=== PATIENT | female | born 2005 | race Caucasian/White ===

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

== ENCOUNTER 2023-04-21 11:16 | Observation (INO) | payer OTHER ==
[2023-04-21 12:51] LABS: Appearance Clear (Clear); Bacteria None Seen /HPF (None Seen); Bilirubin Negative (Negative); Blood Negative (Negative); Epithelial Cells Rare /HPF (None Seen); Glucose, Urine Negative (Negative); Hyaline Casts NONE SEEN /LPF (0-2); Ketones Trace (Negative); Leukocyte Esterase Negative (Negative); Nitrite Negative (Negative); Protein,Urine Dip Trace (Negative); RBC 0-2 /HPF (0-5); Specific Gravity 1.025 (1.005-1.030); WBC 0-2 /HPF (0-5)
[2023-04-21 13:03] LABS: ADD URINE CULTURE? NO (NO)
[2023-04-21] MEDS ORDERED: Lactated Ringers 1,000 ML IV ONE (13:08)
[2023-04-21] MEDS ORDERED: Lactated Ringers 1,000 ML IV SCH (13:30)
[2023-04-21 15:06] VITALS: BP 119/63; PULSE 79; O2SAT 97
[2023-04-21 17:20] LABS: Amphetamine,Urine NEGATIVE (NEGATIVE); Barbiturate,Urine NEGATIVE (NEGATIVE); Benzodiazepine,Urine NEGATIVE (NEGATIVE); Cocaine,Urine NEGATIVE (NEGATIVE); Methadone,Urine NEGATIVE (NEGATIVE); Opiate,Urine NEGATIVE (NEGATIVE); PCP,Urine NEGATIVE (NEGATIVE); THC,Urine NEGATIVE (NEGATIVE)
== END 2023-04-21 15:56 | disposition home or self-care (01) ==
LOC: MED SURG 11:16 → UNDOADMOB 11:16 → UNDODISOB 15:56
PROVIDERS: ADMIT Obstetrics & Gynecology; ATTEND Obstetrics & Gynecology
DX: Z34.03 Encounter for supervision of normal first pregnancy, third trimester (principal); Z3A.35 35 weeks gestation of pregnancy
CPT/HCPCS: 80307; 81001; G0378; G0379

== ENCOUNTER 2023-05-21 06:42 | Inpatient (IN) | payer OTHER ==
[2023-05-21] MEDS ORDERED: Zofran 4 MG/2 ML VIAL IV PRN (14:53)
[2023-05-21 15:17] LABS: BASOPHIL % 0.2 % (0.0-0.4); Basophil (Absolute #) 0.02 x10^3/uL (0-0.4); Eosinophil % 0.3 % (0.00-5.0); Eosinophil (Absolute #) 0.03 x10^3/uL (0-0.5); Hematocrit 35.6 % (35-47); Hemoglobin 11.5 g/dL (12.0-16.0); IMMATURE GRAN # 0.05 x10^3u/L (0.00-0.03); IMMATURE GRAN % 0.5 % (0.00-0.4); Lymphocytes % 12.5 % (24.0-44.0); Mean Corpuscular Hgb Concent. 32.3 g/dL (32-36); Mean Platelet Volume 10.4 fL (7.5-11.0); Monocyte (Absolute #) 0.71 x10^3/uL (0.0-1.3); Monocytes % 7.4 % (0.0-12.0); Neutrophil % 79.1 % (36.0-66.0); Platelet Count 174 x10^3/uL (150-450); Red Blood Count 3.71 x10^6/uL (4.1-5.4); Red Cell Distribution Width 13.6 % (11.5-14.0); White Blood Count 9.6 x10^3/uL (4.0-10.5)
[2023-05-21] MEDS: CYTOTEC PO SCH ×5 (15:35→23:27)
[2023-05-21 16:03] LABS: Amphetamine,Urine NEGATIVE (NEGATIVE); Barbiturate,Urine NEGATIVE (NEGATIVE); Benzodiazepine,Urine NEGATIVE (NEGATIVE); Cocaine,Urine NEGATIVE (NEGATIVE); Methadone,Urine NEGATIVE (NEGATIVE); Opiate,Urine NEGATIVE (NEGATIVE); PCP,Urine NEGATIVE (NEGATIVE); THC,Urine NEGATIVE (NEGATIVE)
[2023-05-21 16:15] LABS: ABO TYPING A; Antibody Screen NEGATIVE (NEGATIVE); RH TYPING POSITIVE
[2023-05-22] MEDS: CYTOTEC PO SCH ×2 (01:31→03:38)
[2023-05-22] MEDS ORDERED: Ephedrine Sulfate 50 MG/ML IV PRN (04:00)
[2023-05-22] MEDS ORDERED: Nubain 10 MG/ML IV PRN (04:00)
[2023-05-22] MEDS ORDERED: Nubain 10 MG/ML ONE (04:17)
[2023-05-22] MEDS ORDERED: FENTANYL 2 MCG-BUPIV 0.125%-NS 250 ML Epidur 250 ML EPIDURAL SCH (04:30)
[2023-05-22] MEDS ORDERED: Lactated Ringers 1,000 ML IV ONE (04:30)
[2023-05-22] MEDS: Lactated Ringers 1,000 ML IV SCH ×5 (04:35→15:37)
[2023-05-22] MEDS ORDERED: BRETHINE 1 MG/ML SQ PRN (04:42)
[2023-05-22] MEDS ORDERED: PITOCIN 30 UNITS/ LR 500 ML 30 UNITS/500 ML PLAST..BAG IV SCH (05:30)
[2023-05-22] MEDS ORDERED: CORTISONE 1% CREAM TP PRN (11:18)
[2023-05-22] MEDS ORDERED: Mylicon 80MG PO PRN (11:18)
[2023-05-22] MEDS ORDERED: Dulcolax 10 MG SUPP PR PRN (11:18)
[2023-05-22] MEDS ORDERED: NORCO 5/325 MG PO PRN (11:18)
[2023-05-22] MEDS ORDERED: Dermoplast Spray TP PRN (11:18)
[2023-05-22] MEDS ORDERED: Ambien 10 MG PO PRN (11:18)
[2023-05-22] MEDS ORDERED: Anucort-HC SUPPOSITORY PR PRN (11:18)
[2023-05-22] MEDS ORDERED: TYLENOL EXTRA STRENGTH 500 MG PO PRN (11:18)
[2023-05-22] MEDS ORDERED: LANSINOH 40 GM TOP PRN (11:18)
[2023-05-22] MEDS ORDERED: Adacel Vial IM ONE (15:00)
[2023-05-22] MEDS: MOTRIN 400 MG PO PRN (18:45)
[2023-05-22] MEDS: TUCKS TP PRN (21:15)
[2023-05-22] MEDS ORDERED: Docusate Sodium 100 MG PO SCH (22:00)
[2023-05-23 03:28] VITALS: O2SAT 97
[2023-05-23] MEDS: Lactated Ringers 1,000 ML IV SCH (04:32)
[2023-05-23] MEDS: MOTRIN 400 MG PO PRN ×3 (05:06→20:57)
[2023-05-23 05:29] LABS: Absolute Neutrophil Ct (ANC) 12.39 x10^3/uL (1.4-6.9); BASOPHIL % 0.2 % (0.0-0.4); Basophil (Absolute #) 0.03 x10^3/uL (0-0.4); Eosinophil % 0.2 % (0.00-5.0); Eosinophil (Absolute #) 0.03 x10^3/uL (0-0.5); Hematocrit 34.3 % (35-47); IMMATURE GRAN # 0.07 x10^3u/L (0.00-0.03); IMMATURE GRAN % 0.5 % (0.00-0.4); Lymphocyte (Absolute #) 1.74 x10^3/uL (1.0-4.6); Lymphocytes % 11.4 % (24.0-44.0); Mean Cell Volume 96.1 fL (78-100); Mean Corpuscular Hemoglobin 30.8 pg (26-32); Mean Corpuscular Hgb Concent. 32.1 g/dL (32-36); Mean Platelet Volume 10.3 fL (7.5-11.0); Monocyte (Absolute #) 1.03 x10^3/uL (0.0-1.3); Monocytes % 6.7 % (0.0-12.0); Platelet Count 160 x10^3/uL (150-450); Red Blood Count 3.57 x10^6/uL (4.1-5.4); Red Cell Distribution Width 13.5 % (11.5-14.0); White Blood Count 15.3 x10^3/uL (4.0-10.5)
[2023-05-23 11:00] LABS: RPR Non Reactive (Non Reactive)
--- NOTE | 2023-05-23 11:06 | PCM.NOTE ---
Date and Time: 05/23/23 1104 ppd 1 sp pt resting in bed and doing well able to ambulate and tolerate diet vss afebrile abd; soft uterus; firm lochia; mild hgb; 11 a/p sp ppd 1 anticipate discharge tomorrow fu office in 3 wks OBJECTIVE DATA Vital Signs: Vital Signs - 24 hr Temp Pulse Resp BP BP Pulse Ox 05/23/23 08:00 97.3 F 93 H 18 140/75 05/23/23 02:00 98.1 F 87 16 135/73 97 05/22/23 20:00 98.1 F 96 H 16 134/71 96 05/22/23 18:30 80 18 135/67 97 05/22/23 18:15 81 18 143/72 98 05/22/23 17:35 95 H 22 132/60 98 05/22/23 16:45 98 H 24 129/61 95 05/22/23 16:30 125 H 24 132/59 95 05/22/23 16:15 24 130/90 05/22/23 16:00 20 133/81 05/22/23 15:45 20 135/92 05/22/23 15:30 20 134/67 05/22/23 15:15 20 134/67 05/22/23 15:00 20 135/92 05/22/23 14:45 100 H 20 114/64 05/22/23 14:30 83 20 118/61 05/22/23 14:15 83 18 118/54 05/22/23 14:00 83 18 122/59 05/22/23 13:45 83 18 115/51 05/22/23 13:30 83 18 132/62 05/22/23 13:15 80 18 114/56 05/22/23 13:00 80 18 114/56 05/22/23 12:45 80 18 114/56 05/22/23 12:30 82 18 123/63 05/22/23 12:15 82 18 128/68 05/22/23 12:00 86 18 128/74 05/22/23 11:45 82 18 128/74 05/22/23 11:30 82 18 110/58 05/22/23 11:15 81 16 98/53 Pain Assessment - Last Documented Pain Intensity [Abdomen] 0 Pain Intensity 2 Pain Scale Used 0-10 Pain Scale Intake and Output: Intake & Output 05/20/23 05/21/23 05/22/23 05/23/23 11:59 11:59 11:59 11:59 Intake Total 3413 6741 Output Total 200 400 Balance 3213 6334 Weight 99.79 kg Lab Results: Lab Results-Last 24 Hours 05/21/23 05/23/23 Range/Units 15:06 05:22 WBC 15.3 H (4.0-10.5) x10^3/uL RBC 3.57 L (4.1-5.4) x10^6/uL Hgb 11.0 L (12.0-16.0) g/dL Hct 34.3 L (35-47) % MCV 96.1 (78-100) fL MCH 30.8 (26-32) pg MCHC 32.1 (32-36) g/dL RDW 13.5 (11.5-14.0) % Plt Count 160 (150-450) x10^3/uL MPV 10.3 (7.5-11.0) fL Gran % 81.0 H (36.0-66.0) % Immature Gran % (Auto) 0.5 H (0.00-0.4) % Nucleat RBC Rel Count 0.0 (0.00-0.1) % Eos # (Auto) 0.03 (0-0.5) x10^3/uL Immature Gran # (Auto) 0.07 H (0.00-0.03) x10^3u/L Absolute Lymphs (auto) 1.74 (1.0-4.6) x10^3/uL Absolute Monos (auto) 1.03 (0.0-1.3) x10^3/uL Absolute Nucleated RBC 0.00 (0.00-0.01) x10^3u/L Lymphocytes % 11.4 L (24.0-44.0) % Monocytes % 6.7 (0.0-12.0) % Eosinophils % 0.2 (0.00-5.0) % Basophils % 0.2 (0.0-0.4) % Absolute Granulocytes 12.39 H (1.4-6.9) x10^3/uL Basophils # 0.03 (0-0.4) x10^3/uL RPR Non Reactive (Non Reactive) Multi-Disciplinary Progress Notes: Multi-Disciplinary Progress Notes 05/22/23 17:50 Respiratory Note by Priya Esquivel [id number] PER PROTOCOL. BABY DELIVERED AT 1658, MUSCLE TONE AND RESPIRATORY EFFORT POOR. BABY BROUGHT TO WARMER. STIMULATED AND DRIED OFF MUSCLE TONE COLOR AND RESPIRATORY EFFORT STILL POOR, PPV STARTED FOR APPROX 6MIN . PERIODIC BREAKS TAKEN TO ASSES HEART RATE COLOR AND RESPIRATORY EFFORT. COLOR AND TONE GRADUALLY IMPROVED . RESPIRATORY EFFORT DID BECOME EFFECTIVE AND PPV WAS NO LONGER INDICATED, HR 170 SPO2 RANGING FROM 89-MID 90;S THEN INCREASED TO 98%. Initialized on 05/22/23 17:50 - END OF NOTE Assessment/Plan (1) Vaginal delivery Current Visit: Yes Status: Acute Code(s): O80 - ENCOUNTER FOR FULL-TERM UNCOMPLICATED DELIVERY
--- NOTE | 2023-05-23 11:08 | PCM.DS ---
Discharge Summary Date of Admission: 05/22/23 06:42 Admitting Physician: SOPHY BARRERA DO Consults: Consults on Case 05/22/23 04:00 Notify Anesthesia Provider PRN 05/22/23 11:19 Notify Physician ROUTINE Primary Care Provider: YAW BROWN Allergies Allergies No Known Drug Allergies Allergy (Verified 05/21/23 16:32) Hospital Summary - Hospital Course Hospital Course: pt admitted on may 21 for oral cytotec induction at 39 wks gestation and subsequently had pitocin augmentation on may 22 and delivered live baby boy without complication via on . during period did very well able to ambulate and tolerate diet. stable hgb at 11. pt at this time stable for discharge on . all questions answered to her satisfaction and was advised to fu in office in 3 wks for care. - Vitals & Intake/Output Vital Signs: Vital Signs Temperature 97.3 F 05/23/23 08:00 Pulse Rate 93 H 05/23/23 08:00 Respiratory Rate 18 05/23/23 08:00 Blood Pressure 140/75 05/23/23 08:00 O2 Sat by Pulse Oximetry 97 05/23/23 02:00 Intake & Output: Intake & Output 05/20/23 05/21/23 05/22/23 05/23/23 11:59 11:59 11:59 11:59 Intake Total 3413 6741 Output Total 200 400 Balance 3213 6341 Weight 99.79 kg - Lab Result Diagrams: 05/23/23 05:22 Lab Results-Last 24 Hrs: Lab Results-Last 24 Hours 05/21/23 05/23/23 Range/Units 15:06 05:22 WBC 15.3 H (4.0-10.5) x10^3/uL RBC 3.57 L (4.1-5.4) x10^6/uL Hgb 11.0 L (12.0-16.0) g/dL Hct 34.3 L (35-47) % MCV 96.1 (78-100) fL MCH 30.8 (26-32) pg MCHC 32.1 (32-36) g/dL RDW 13.5 (11.5-14.0) % Plt Count 160 (150-450) x10^3/uL MPV 10.3 (7.5-11.0) fL Gran % 81.0 H (36.0-66.0) % Immature Gran % (Auto) 0.5 H (0.00-0.4) % Nucleat RBC Rel Count 0.0 (0.00-0.1) % Eos # (Auto) 0.03 (0-0.5) x10^3/uL Immature Gran # (Auto) 0.07 H (0.00-0.03) x10^3u/L Absolute Lymphs (auto) 1.74 (1.0-4.6) x10^3/uL Absolute Monos (auto) 1.03 (0.0-1.3) x10^3/uL Absolute Nucleated RBC 0.00 (0.00-0.01) x10^3u/L Lymphocytes % 11.4 L (24.0-44.0) % Monocytes % 6.7 (0.0-12.0) % Eosinophils % 0.2 (0.00-5.0) % Basophils % 0.2 (0.0-0.4) % Absolute Granulocytes 12.39 H (1.4-6.9) x10^3/uL Basophils # 0.03 (0-0.4) x10^3/uL RPR Non Reactive (Non Reactive) - Procedures and Test Procedures and Tests throughout Hospitalization: Therapy Orders & Screens 05/22/23 17:49 Standby ROUTINE Comment: Diagnosis: IUP Final Diagnosis/Problem List - Final Discharge Diagnosis/Problem (1) Vaginal delivery Current Visit: Yes Status: Acute Code(s): O80 - ENCOUNTER FOR FULL-TERM UN COMPLICATED DELIVERY - Discharge Disposition: Home, Self-Care Condition: Stable Prescriptions: No Action Vit 14/Iron Fum/Folic [Completenate Tablet Chew] 1 each PO DAILY Omeprazole Magnesium [Prilosec Otc] 20 mg PO HS Follow up with: YAW BROWN NP [Primary Care Provider] - SOPHY BARRERA DO [ACTIVE STAFF] - 3 weeks (should call office for any issues that may arise)
[2023-05-23] MEDS: FERREX 150 PO SCH (11:44)
[2023-05-23] MEDS: Docusate Sodium 100 MG PO SCH ×2 (11:44→20:57)
[2023-05-23] MEDS: TYLENOL EXTRA STRENGTH 500 MG PO PRN (15:25)
[2023-05-23] MEDS: TUCKS TP PRN (18:10)
[2023-05-24] MEDS: MOTRIN 400 MG PO PRN (08:58)
[2023-05-24 09:31] VITALS: BP 135/88; PULSE 79
[2023-05-24] MEDS: FERREX 150 PO SCH (11:01)
[2023-05-24] MEDS: Docusate Sodium 100 MG PO SCH (11:53)
[2023-05-24] MEDS: TYLENOL EXTRA STRENGTH 500 MG PO PRN (12:53)
== END 2023-05-24 13:15 | disposition home or self-care (01) | DRG 807 ==
LOC: OB 06:42 → UNDOADMOB 14:19 → OB 14:19 → OBSVTOIN 05-22 06:42
PROVIDERS: ADMIT Obstetrics & Gynecology; ATTEND Obstetrics & Gynecology
PROC: 10E0XZZ Delivery of Products of Conception, External Approach (ICD-10-PCS; principal; 2023-05-22)
PROC: 0KQM0ZZ Repair Perineum Muscle, Open Approach (ICD-10-PCS; 2023-05-22)
DX: O70.1 Second degree perineal laceration during delivery (principal); Z37.0 Single live birth; Z3A.39 39 weeks gestation of pregnancy; Z20.828 Contact with and (suspected) exposure to other viral communicable diseases
CPT/HCPCS: 36415; 59409; 80307; 85025; 86592; 86850; 86900; 86901; 90471; 90715; 94799; G0378; J2300; J2590; A9270-GY

== ENCOUNTER 2024-10-08 19:36 | Emergency (ER) | payer OTHER ==
[2024-10-08 20:08] VITALS: TEMP 98
[2024-10-08 20:17] LABS: Absolute Neutrophil Ct (ANC) 3.35 x10^3/uL (1.56-6.13); BASOPHIL % 0.5 % (0.1-1.2); Basophil (Absolute #) 0.03 x10^3/uL (0.01-0.08); Eosinophil % 3.3 % (0.7-5.8); Hematocrit 39.1 % (34.1-44.9); Hemoglobin 13.8 g/dL (11.2-15.7); IMMATURE GRAN # 0.01 x10^3u/L (0.001-0.031); IMMATURE GRAN % 0.2 % (0.001-0.429); Lymphocyte (Absolute #) 2.06 x10^3/uL (1.18-3.74); Lymphocytes % 33.9 % (19.3-51.7); Mean Cell Volume 90.9 fL (79.4-94.8); Mean Corpuscular Hemoglobin 32.1 pg (25.6-32.2); Mean Corpuscular Hgb Concent. 35.3 g/dL (32.2-35.5); Mean Platelet Volume 9.2 fL (9.4-12.3); Monocyte (Absolute #) 0.42 x10^3/uL (0.24-0.86); Monocytes % 6.9 % (4.7-12.5); Neutrophil % 55.2 % (34.0-71.1); Platelet Count 294 x10^3/uL (182-369); Red Cell Distribution Width 12.2 % (11.7-14.4); White Blood Count 6.1 x10^3/uL (3.98-10.04)
[2024-10-08 20:26] LABS: HCG SERUM TEST NEGATIVE (NEGATIVE)
[2024-10-08 20:27] LABS: ALBUMIN 4.9 g/dL (3.5-5.0); BILIRUBIN,TOTAL 0.6 mg/dL (0.2-1.3); Calcium 9.7 mg/dL (8.4-10.2); Creatinine 1 0.65 mg/dL (0.52-1.04); EST GLOMERULAR FILTRATION RATE 128.4 ML/MIN; Potassium 3.7 mmol/L (3.5-5.1)
[2024-10-08 20:35] LABS: Appearance Clear (Clear); Bacteria Few /HPF (None Seen); Bilirubin Negative (Negative); Blood Negative (Negative); Epithelial Cells Few /HPF (None Seen); Glucose, Urine Negative (Negative); Hyaline Casts NONE SEEN /LPF (0-2); Ketones Negative (Negative); Leukocyte Esterase Moderate (Negative); Nitrite Negative (Negative); Protein,Urine Dip Negative (Negative); WBC 21-50 /HPF (0-5)
[2024-10-08 20:45] LABS: Amphetamine,Urine NEGATIVE (NEGATIVE); Barbiturate,Urine NEGATIVE (NEGATIVE); Benzodiazepine,Urine NEGATIVE (NEGATIVE); Cocaine,Urine NEGATIVE (NEGATIVE); Methadone,Urine NEGATIVE (NEGATIVE); Opiate,Urine NEGATIVE (NEGATIVE); PCP,Urine NEGATIVE (NEGATIVE); THC,Urine NEGATIVE (NEGATIVE)
[2024-10-08 21:03] VITALS: O2SAT 95
--- NOTE | 2024-10-08 21:44 | ERPHSYRPT ---
- History of Present Illness Time Seen by Provider: 10/08/24 19:55 Historian: patient Exam Limitations: no limitations Patient Subjective Stated Complaint: Abdominal pain in the umbilical area and left upper abdominal area that started today. Stated that pain is worse with palpation and with laying on left side or stomach. Pain became worse today with eating. Diarrhea all the time. Pain has been ongoing for months just worse today within the last hour. Triage Nursing Assessment: Patient presents with Abdominal pain in the umbilical area and left upper abdominal area that started today. Stated that pain is worse with palpation and with laying on left side or stomach. Pain became worse today with eating. Diarrhea all the time. Pain has been ongoing for months just worse today within the last hour. Physician History: 19-year-old female presents to emergency department for evaluation of periumbilical pain radiating to the left flank. Pain associated with diarrhea. Pain worse postprandial. Patient states pain has been intermittent over the past several months. However worse today. No trauma no fever no dysuria. Patient denies a possibility of . Symptoms are mild to moderate in intensity. No specific worsening or improving factors. Patient otherwise feels well. She voices no other complaints or concerns at this time. Portions of this note were created with voice recognition technology. There may be grammatical, spelling, punctuation or sound alike errors Timing/Duration: today Activities at Onset: none Quality: aching Abdominal Pain Onset Location: periumbilical Pain Radiation: other (Radiates to left flank) Severity of Pain-Max: moderate Severity of Pain-Current: mild Modifying Factors: Improves With: other (Worse after eating) Associated Symptoms: other (Diarrhea) Previous symptoms: no prior history Allergies/Adverse Reactions: No Known Drug Allergies Allergy (Verified 10/08/24 20:15) Home Medications: Ergocalciferol (Vitamin D2) [Vitamin D2] 1,250 mcg PO WEEKLY 10/08/24 [History] Glycopyrrolate 1 mg PO BID 10/08/24 [History] Phentermine HCl 37.5 mg PO DAILY 10/08/24 [History] Hx Tetanus, Diphtheria Vaccination/Date Given: Yes Hx Influenza Vaccination/Date Given: Yes Hx Pneumococcal Vaccination/Date Given: No Immunizations Up to Date: Yes Travel Risk - International Travel Have you traveled outside of the country in past 3 weeks: No - Emerging Infectious Disease Are you exhibiting symptoms associated with any current EIDs: Yes Symptoms: Abdominal Pain, Diarrhea - Review of Systems Constitutional: No Symptoms, No Fever, No Chills Eyes: No Symptoms Ears, Nose, & Throat: No Symptoms Respiratory: No Symptoms, No Cough, No Dyspnea Cardiac: No Symptoms, No Chest Pain, No Edema, No Syncope Abdominal/Gastrointestinal: No Symptoms, No Abdominal Pain, No Nausea, No Vomiting, No Diarrhea Genitourinary Symptoms: No Symptoms, No Dysuria Musculoskeletal: No Symptoms, No Back Pain, No Neck Pain Skin: No Symptoms, No Rash Neurological: No Symptoms, No Dizziness, No Focal Weakness, No Sensory Changes Psychological: No Symptoms Endocrine: No Symptoms Hematologic/Lymphatic: No Symptoms Immunological/Allergic: No Symptoms All Other Systems: Reviewed and Negative - Past Medical History Pertinent Past Medical History: Yes Neurological History: No Pertinent History ENT History: No Pertinent History Cardiac History: No Pertinent History Respiratory History: No Pertinent History Endocrine Medical History: Other Musculoskeletal History: Fractures GI Medical History: No Pertinent History History: No Pertinent History Psycho-Social History: Anxiety Female Reproductive Disorders: No Pertinent History Other Medical History: Excessive sweating - Past Surgical History Past Surgical History: No Neuro Surgical History: No Pertinent History Cardiac: No Pertinent History Respiratory: No Pertinent History Gastrointestinal: No Pertinent History Genitourinary: No Pertinent History Musculoskeletal: No Pertinent History Female Surgical History: No Pertinent History - Female History Hx Last Menstrual Period: 10/04/2024 Hx Now: No - Social History Smoking Status: Former smoker How long have you smoked: 0 Exposure to second hand smoke: No Drug Use: none Patient Lives Alone: No - Social Determinants of Health Will the patient participate in the screening: Yes Do you worry about a steady place to live?: No Do you have any problems with any of the following?: No known problems In the past 12 months,have you had to go without utilities?: No Transportation Issues: No Has anyone in your support network made you feel unsafe?: No Have you or anyone in your house had to go without enough: No - Nursing Vital Signs Nursing Vital Signs: Initial Vital Signs Temperature 98 F 10/08/24 19:37 Pulse Rate 113 H 10/08/24 19:37 Respiratory Rate 20 10/08/24 19:37 Blood Pressure 152/104 10/08/24 19:37 O2 Sat by Pulse Oximetry 100 10/08/24 19:37 Pain Scale Pain Intensity 2 - Physical Exam General Appearance: no apparent distress, alert Eye Exam: PERRL/EOMI, eyes nml inspection Ears, Nose, Throat Exam: normal ENT inspection, pharynx normal, moist mucous membranes Neck Exam: normal inspection, non-tender, supple, full range of motion Respiratory Exam: normal breath sounds, lungs clear, airway intact, No respiratory distress Cardiovascular Exam: regular rate/rhythm, normal heart sounds Gastrointestinal/Abdomen Exam: soft, tenderness (Lower abdominal tenderness), No mass Back Exam: normal inspection, normal range of motion, No CVA tenderness, No vertebral tenderness Extremity Exam: normal inspection, normal range of motion, pelvis stable Neurologic Exam: alert, oriented x 3, cooperative, normal mood/affect, sensation nml, No motor deficits Skin Exam: normal color, warm, dry Lymphatic Exam: No adenopathy SpO2 Interpretation: normal SpO2: 95 O2 Delivery: Room Air - Course Nursing assessment & vital signs reviewed: Yes - CT Exams Abdomen/Pelvis CT Interpretation: Tele-radiologist Report (Mild diffuse fecal stasis fecal impaction and spondylosis) Ordered Tests: Active Orders 24 hr Category Date Time Status IV Insertion STAT Care 10/08/24 20:10 Active ABDOMEN AND PELVIS W/0 CONTRAS [CT] Stat Exams 10/08/24 20:12 Taken CBC W DIFF Stat Lab 10/08/24 20:00 Completed CMP Stat Lab 10/08/24 20:00 Completed CULTURE,URINE Stat Lab 10/08/24 20:13 Received HCG QUALITATIVE, SERUM Stat Lab 10/08/24 20:00 Completed LIPASE Stat Lab 10/08/24 20:00 Completed UA W/RFX UR CULTURE Stat Lab 10/08/24 20:13 Completed Urine Triage Profile Stat Lab 10/08/24 20:13 Completed Medication Summary Generic Name Dose Route Start Last Admin Trade Name Freq PRN Reason Stop Dose Admin Ceftriaxone Sodium 1 gm in 100 mls @ 200 mls/hr 10/08/24 21:47 10/08/24 21:50 Rocephin 1 Gm / 100 Ml Nacl IV 10/08/24 22:16 200 ml/hr STAT ONE 200 mls/hr Administration Discontinued Medications Generic Name Dose Route Start Last Admin Trade Name Freq PRN Reason Stop Dose Admin Ceftriaxone Sodium Confirm 10/08/24 21:48 Rocephin 1 Gm / 100 Ml Nacl Administered 10/08/24 21:49 Dose 1 gm in 100 mls @ ud IV .STK-MED ONE Lab/Rad Data: Laboratory Result Diagrams 10/08/24 20:00 10/08/24 20:00 Laboratory Results 10/08/24 10/08/24 10/08/24 Range/Units 20:13 20:13 20:00 WBC (3.98-10.04) x10^3/uL RBC (3.93-5.22) x10^6/uL Hgb (11.2-15.7) g/dL Hct (34.1-44.9) % MCV (79.4-94.8) fL MCH (25.6-32.2) pg MCHC (32.2-35.5) g/dL RDW (11.7-14.4) % Plt Count (182-369) x10^3/uL MPV (9.4-12.3) fL Gran % (34.0-71.1) % Immature Gran % (Auto) (0.001-0.429) % Nucleat RBC Rel Count (0.00-0.2) % Eos # (Auto) (0.04-0.36) x10^3/uL Immature Gran # (Auto) (0.001-0.031) x10^3u/L Absolute Lymphs (auto) (1.18-3.74) x10^3/uL Absolute Monos (auto) (0.24-0.86) x10^3/uL Absolute Nucleated RBC (0.00-0.012) x10^3u/L Lymphocytes % (19.3-51.7) % Monocytes % (4.7-12.5) % Eosinophils % (0.7-5.8) % Basophils % (0.1-1.2) % Absolute Granulocytes (1.56-6.13) x10^3/uL Basophils # (0.01-0.08) x10^3/uL Sodium (135-145) mmol/L Potassium (3.5-5.1) mmol/L Chloride (98-107) mmol/L Carbon Dioxide (22-30) mmol/L Anion Gap (5-15) MEQ/L BUN (7-17) mg/dL Creatinine (0.52-1.04) mg/dL Estimated GFR ML/MIN Glucose (74-106) mg/dL Calcium (8.4-10.2) mg/dL Total Bilirubin (0.2-1.3) mg/dL AST (14-36) U/L ALT (0-35) U/L Alkaline Phosphatase (38-126) U/L Serum Total Protein (6.3-8.2) g/dL Albumin (3.5-5.0) g/dL Lipase (23-300) U/L Serum HCG, Qual NEGATIVE (NEGATIVE) Urine Color Yellow (Yellow) Urine Appearance Clear (Clear) Urine pH 6.0 (4.6-8.0) Ur Specific [place] 1.020 (1.005-1.030) Urine Protein Negative (Negative) Urine Glucose (UA) Negative (Negative) mg/dL Urine Ketones Negative (Negative) Urine Blood Negative (Negative) Urine Nitrite Negative (Negative) Urine Bilirubin Negative (Negative) Urine Urobilinogen 1.0 A (0.2) mg/dL Ur Leukocyte Esterase Moderate A (Negative) U Hyaline Cast (Auto) NONE SEEN (0-2) /LPF Urine Microscopic RBC 3-5 (0-5) /HPF Urine Microscopic WBC 21-50 A (0-5) /HPF Ur Epithelial Cells Few (None Seen) /HPF Urine Bacteria Few A (None Seen) /HPF Urine Culture Reflexed YES (NO) Urine Opiates Level NEGATIVE (NEGATIVE) Ur Methadone NEGATIVE (NEGATIVE) Urine Barbiturates NEGATIVE (NEGATIVE) Ur Phencyclidine (PCP) NEGATIVE (NEGATIVE) Urine Amphetamine NEGATIVE (NEGATIVE) U Benzodiazepine Level NEGATIVE (NEGATIVE) Urine Cocaine NEGATIVE (NEGATIVE) Urine Marijuana (THC) NEGATIVE (NEGATIVE) 10/08/24 10/08/24 Range/Units 20:00 20:00 WBC 6.1 (3.98-10.04) x10^3/uL RBC 4.30 (3.93-5.22) x10^6/uL Hgb 13.8 (11.2-15.7) g/dL Hct 39.1 (34.1-44.9) % MCV 90.9 (79.4-94.8) fL MCH 32.1 (25.6-32.2) pg MCHC 35.3 (32.2-35.5) g/dL RDW 12.2 (11.7-14.4) % Plt Count 294 (182-369) x10^3/uL MPV 9.2 L (9.4-12.3) fL Gran % 55.2 (34.0-71.1) % Immature Gran % (Auto) 0.2 (0.001-0.429) % Nucleat RBC Rel Count 0.0 (0.00-0.2) % Eos # (Auto) 0.20 (0.04-0.36) x10^3/uL Immature Gran # (Auto) 0.01 (0.001-0.031) x10^3u/L Absolute Lymphs (auto) 2.06 (1.18-3.74) x10^3/uL Absolute Monos (auto) 0.42 (0.24-0.86) x10^3/uL Absolute Nucleated RBC 0.00 (0.00-0.012) x10^3u/L Lymphocytes % 33.9 (19.3-51.7) % Monocytes % 6.9 (4.7-12.5) % Eosinophils % 3.3 (0.7-5.8) % Basophils % 0.5 (0.1-1.2) % Absolute Granulocytes 3.35 (1.56-6.13) x10^3/uL Basophils # 0.03 (0.01-0.08) x10^3/uL Sodium 140 (135-145) mmol/L Potassium 3.7 (3.5-5.1) mmol/L Chloride 105 (98-107) mmol/L Carbon Dioxide 25 (22-30) mmol/L Anion Gap 15.0 (5-15) MEQ/L BUN 8 (7-17) mg/dL Creatinine 0.65 (0.52-1.04) mg/dL Estimated GFR 128.4 ML/MIN Glucose 97 (74-106) mg/dL Calcium 9.7 (8.4-10.2) mg/dL Total Bilirubin 0.60 (0.2-1.3) mg/dL AST 29 (14-36) U/L ALT 27 (0-35) U/L Alkaline Phosphatase 76 (38-126) U/L Serum Total Protein 8.0 (6.3-8.2) g/dL Albumin 4.9 (3.5-5.0) g/dL Lipase 118 (23-300) U/L Serum HCG, Qual (NEGATIVE) Urine Color (Yellow) Urine Appearance (Clear) Urine pH (4.6-8.0) Ur Specific [place] (1.005-1.030) Urine Protein (Negative) Urine Glucose (UA) (Negative) mg/dL Urine Ketones (Negative) Urine Blood (Negative) Urine Nitrite (Negative) Urine Bilirubin (Negative) Urine Urobilinogen (0.2) mg/dL Ur Leukocyte Esterase (Negative) U Hyaline Cast (Auto) (0-2) /LPF Urine Microscopic RBC (0-5) /HPF Urine Microscopic WBC (0-5) /HPF Ur Epithelial Cells (None Seen) /HPF Urine Bacteria (None Seen) /HPF Urine Culture Reflexed (NO) Urine Opiates Level (NEGATIVE) Ur Methadone (NEGATIVE) Urine Barbiturates (NEGATIVE) Ur Phencyclidine (PCP) (NEGATIVE) Urine Amphetamine (NEGATIVE) U Benzodiazepine Level (NEGATIVE) Urine Cocaine (NEGATIVE) Urine Marijuana (THC) (NEGATIVE) - Progress Progress: improved Progress Note: 19-year-old female presents to our ED for evaluation of abdominal pain. Physical exam reveals lower abdominal tenderness. CT scan reveals mild diffuse fecal stasis with fecal impaction and spondylosis. UTI observed on UA. Patient received a gram of Rocephin in our ED. A prescription for Macrobid forwarded to patient's pharmacy. Patient will try [id number] MiraLAX laxative. No indication for further workup. Patient resting comfortably. No active pain at this time. Patient agrees to follow-up with her primary care doctor within 48 hours for reevaluation. Portions of this note were created with voice recognition technology. There may be grammatical, spelling, punctuation or sound alike errors Complexity of problem addressed is moderate acute complicated. No critical care time. Complex of data reviewed and analyzed is moderate. Test ordered chest reviewed results analyzed and correlated clinically with history and physical exam. Risk of complication and or risk of morbidity/mortality patient management is moderate. A prescription for Macrobid for the patient pharmacy. Vital stable. Time spent to discharge patient approximately 10 minutes. Plan of care established for shared decision making. No social determinants of health present to impede follow-up. Portions of this note were created with voice recognition technology. There may be grammatical, spelling, punctuation or sound alike errors 10/08/24 21:59 Counseled pt/family regarding: lab results, diagnosis, need for follow-up, rad results - Departure Departure Disposition: Home Clinical Impression: UTI (urinary tract infection), Constipation, Spondylosis Condition: Stable Critical Care Time: No Referrals: PRAVIN INIGUEZ MD [Primary Care Provider] - Follow up/PCP as directed Additional Instructions: Discharge/Care Plan REINALDO FORD was seen on 10/08/24 in the Emergency Room. The patient was counseled regarding Diagnosis,Lab results, Imaging studies, need for follow up and when to return to the Emergency Room. Prescriptions given: Discharge Note I have spoken with the patient and/or caregivers. I have explained the patient's condition, diagnosis and treatment plan based on the information available to me at this time. I have answered the patient's and/or caregiver's questions and addressed any concerns. The patient and/or caregivers have as good understanding of the patient's diagnosis, condition and treatment plan as can be expected at this point. The vital signs have been stable. The patient's condition is stable and appropriate for discharge from the emergency department. The patient will pursue further outpatient evaluation with the primary care physician or other designated or consulting physician as outlined in the discharge instructions. The patient and/or caregivers are agreeable to this plan of care and follow-up instructions have been explained in detail. The patient and/or caregivers have received these instruction. The patient/and or caregivers are aware that any significant change in condition or worsening of symptoms should prompt an immediate return to this or the closest emergency department or call 911. Prescriptions: Nitrofurantoin Macro 100 mg [Macrobid 100MG Capsule] 100 mg PO BID 7 Days #14 cap
[2024-10-08] MEDS ORDERED: ROCEPHIN 1 GM / 100 ML NaCl 1 GM/100 ML IVPB IV ONE (21:48)
[2024-10-08] MEDS: ROCEPHIN 1 GM / 100 ML NaCl 1 GM/100 ML IVPB IV ONE (21:50)
[2024-10-08 22:02] VITALS: BP 117/78; PULSE 88; RESP 18
--- NOTE | 2024-10-09 08:49 | XRAY ---
Indication: Left abdomen pain. Diarrhea. Multiple contiguous axial images obtained through the abdomen and pelvis without contrast. Comparison: None Lung bases clear. Heart not enlarged. Stomach distended with food/fluid. Noncontrasted stomach and bowel loops appear nonobstructed with normal appendix. Moderate diffuse scattered colonic fecal debris including rectal fecal impaction. No free fluid/air. Remaining liver, gallbladder, pancreas, spleen, adrenal glands, kidneys, ureters, bladder, uterus, and aorta are unremarkable for noncontrast exam. 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 Impression: 1. Moderate diffuse fecal stasis with rectal fecal impaction. 2. 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 3. Remaining CT abdomen/pelvis without contrast exam is negative.
== END 2024-10-08 22:06 | disposition home or self-care (01) ==
LOC: ED 19:36
DX: N39.0 Urinary tract infection, site not specified (principal); K59.00 Constipation, unspecified; M47.816 Spondylosis without myelopathy or radiculopathy, lumbar region
CPT/HCPCS: 36415; 74176; 80053; 80307; 81001; 83690; 84703; 85025; 87086; 99284; J0696

== ENCOUNTER 2025-08-05 15:54 | Emergency (ER) | payer OTHER ==
[2025-08-05 16:15] VITALS: TEMP 99.4
[2025-08-05 16:20] VITALS: BP 136/86; PULSE 92; RESP 16
[2025-08-05 16:22] VITALS: O2SAT 98
--- NOTE | 2025-08-05 16:22 | ERPHSYRPT ---
- History of Present Illness Time Seen by Provider: 08/05/25 16:19 Patient Subjective Stated Complaint: patient came to Ed she is 8 weeks t and bleeding Triage Nursing Assessment: patient is 8 1/2 weeks nad having cramping nad bleeding. patient states she came in today because last night she wiped and it was brown and now shes having more bleeding and its getting heavier and she is cramping. patient did state she drove herself here. she is alert and orientedx3 able to ambulate by self. patient states amount of blood coming out is increasing nad has gone from brownish to bright red. patient also states she had sex early monday morning as well. she does states shes nauseous nad cramping as well. Physician History: This is a 19-year-old white female patient arrives per private vehicle and is a patient Dr. Iniguez who is approximately 8-1/2 weeks with a complaint of vaginal cramping and vaginal bleeding. Patient had sexual intercourse a couple of days ago and yesterday she passed brown mucousy discharge. Today there was more cramping and the blood was bright red blood. The patient underwent an OB ultrasound less than 14 weeks in March 2025. At that time there was a single intrauterine gestational sac. There was no heartbeat at that time as it may have been too early to detect. On 07/16/2025 the patient's quantitative hCG was approximately 2900. Over 2 weeks later, today's quantitative hCG is only just over 3000. Timing/Duration: yesterday Activites at Onset: sexual activity (Occurred the day before) Quality: cramping Onset Location: vaginal Pain Radiation: none Severity of Pain-Max: mild Severity of Pain-Current: mild Modifying Factors: Improves With: nothing Associated Symptoms: vaginal discharge (Brownish discharge followed by bloody discharge) Allergies/Adverse Reactions: No Known Drug Allergies Allergy (Verified 08/05/25 16:38) Home Medications: Progesterone, Micronized [Endometrin] 100 mg VG DAILY 08/05/25 [History] Hx Tetanus, Diphtheria Vaccination/Date Given: Yes Hx Influenza Vaccination/Date Given: Yes Hx Pneumococcal Vaccination/Date Given: No Travel Risk - International Travel Have you traveled outside of the country in past 3 weeks: No - Emerging Infectious Disease Are you exhibiting symptoms associated with any current EIDs: No Symptoms: Abdominal Pain, Diarrhea - Review of Systems Constitutional: No Symptoms Eyes: No Symptoms Ears, Nose, & Throat: No Symptoms Respiratory: No Symptoms Cardiac: No Symptoms Abdominal/Gastrointestinal: Abdominal Pain (Prepubic/pelvic cramping), Nausea Genitourinary Symptoms: Vaginal Bleeding, Vaginal Discharge Musculoskeletal: No Symptoms Skin: No Symptoms Neurological: No Symptoms Psychological: No Symptoms Endocrine: No Symptoms Hematologic/Lymphatic: No Symptoms Immunological/Allergic: No Symptoms All Other Systems: Reviewed and Negative - Past Medical History Pertinent Past Medical History: Yes Neurological History: No Pertinent History ENT History: No Pertinent History Cardiac History: No Pertinent History Respiratory History: No Pertinent History Endocrine Medical History: Other Musculoskeletal History: Fractures GI Medical History: No Pertinent History History: No Pertinent History Psycho-Social History: Anxiety Female Reproductive Disorders: No Pertinent History Other Medical History: Excessive sweating - Past Surgical History Past Surgical History: No Neuro Surgical History: No Pertinent History Cardiac: No Pertinent History Respiratory: No Pertinent History Gastrointestinal: No Pertinent History Genitourinary: No Pertinent History Musculoskeletal: No Pertinent History Female Surgical History: No Pertinent History - Female History Hx Last Menstrual Period: 10/04/2024 Hx Now: Yes Gestational Age: 6 - Social History Smoking Status: Former smoker How long have you smoked: 0 Exposure to second hand smoke: No Drug Use: none - Social Determinants of Health Will the patient participate in the screening: Yes Do you worry about a steady place to live?: No Do you have any problems with any of the following?: No known problems In the past 12 months,have you had to go without utilities?: No Transportation Issues: No Has anyone in your support network made you feel unsafe?: No Have you or anyone in your house had to go w/o enough food: No - Nursing Vital Signs Nursing Vital Signs: Initial Vital Signs Temperature 99.4 F 08/05/25 16:05 Pulse Rate 103 H 08/05/25 16:05 Respiratory Rate 14 08/05/25 16:05 Blood Pressure 137/85 08/05/25 16:05 O2 Sat by Pulse Oximetry 98 08/05/25 16:05 Pain Scale Pain Intensity 2 - Physical Exam General Appearance: no apparent distress, alert, anxiety Eye Exam: PERRL/EOMI, eyes nml inspection Ears, Nose, Throat Exam: normal ENT inspection, moist mucous membranes Neck Exam: normal inspection, non-tender, supple, full range of motion Respiratory Exam: normal breath sounds, lungs clear, airway intact, No chest tenderness, No respiratory distress Cardiovascular Exam: regular rate/rhythm, normal heart sounds, normal peripheral pulses Pelvic Exam: not done Rectal Exam: not done Back Exam: normal inspection, normal range of motion, No CVA tenderness, No vertebral tenderness Extremity Exam: normal inspection, normal range of motion, pelvis stable Neurologic Exam: alert, oriented x 3, cooperative, platen grinder II-XII nml as tested Skin Exam: normal color, warm, dry Lymphatic Exam: No adenopathy SpO2 Interpretation: normal SpO2: 98 O2 Delivery: Room Air - Course Nursing assessment & vital signs reviewed: Yes Ordered Tests: Active Orders 24 hr Category Date Time Status IV Insertion STAT Care 08/05/25 16:20 Active OB <14 WKS 1ST GESTATION [US] Stat Exams 08/05/25 16:21 Completed CBC W DIFF Stat Lab 08/05/25 16:28 Completed CMP Stat Lab 08/05/25 16:28 Completed CULTURE,URINE Stat Lab 08/05/25 16:20 Received HCG, Quantitative (Inhouse) Stat Lab 08/05/25 16:28 Completed UA W/RFX UR CULTURE Stat Lab 08/05/25 16:20 Completed Medication Summary Discontinued Medications Generic Name Dose Route Start Last Admin Trade Name Freq PRN Reason Stop Dose Admin Cephalexin HCl 500 mg 08/05/25 17:26 08/05/25 17:34 Cephalexin Mh500 Mg Capsule PO 08/05/25 17:27 500 mg STAT ONE Administration Cephalexin HCl Confirm 08/05/25 17:33 Cephalexin Mh500 Mg Capsule Administered 08/05/25 17:34 Dose 500 mg .ROUTE .STK-MED ONE Sodium Chloride 1,000 mls @ 999 mls/hr 08/05/25 16:20 08/05/25 17:08 Sodium Chloride 0.9% 1000 Ml IV 08/05/25 17:20 999 mls/hr .Q1H1M STA Administration Sodium Chloride Confirm 08/05/25 16:28 Sodium Chloride 0.9% 1000 Ml Administered 08/05/25 16:29 Dose 1,000 mls @ ud .ROUTE .STK-MED ONE Ondansetron HCl 4 mg 08/05/25 16:20 08/05/25 17:09 Ondansetron Hcl 4 Mg/2 Ml Vial IV 08/05/25 16:21 4 mg STAT ONE Administration Ondansetron HCl Confirm 08/05/25 16:28 Ondansetron Hcl 4 Mg/2 Ml Vial Administered 08/05/25 16:29 Dose 4 mg .ROUTE .STK-MED ONE Lab/Rad Data: Laboratory Result Diagrams 08/05/25 16:28 08/05/25 16:28 Laboratory Results 08/05/25 08/05/25 08/05/25 Range/Units 16:28 16:28 16:20 WBC 8.6 (3.98-10.04) x10^3/uL RBC 4.15 (3.93-5.22) x10^6/uL Hgb 13.7 (11.2-15.7) g/dL Hct 39.2 (34.1-44.9) % MCV 94.5 (79.4-94.8) fL MCH 33.0 H (25.6-32.2) pg MCHC 34.9 (32.2-35.5) g/dL RDW 11.7 (11.7-14.4) % Plt Count 291 (182-369) x10^3/uL MPV 8.8 L (9.4-12.3) fL Gran % 62.6 (34.0-71.1) % Immature Gran % (Auto) 0.3 (0.001-0.429) % Nucleat RBC Rel Count 0.0 (0.00-0.2) % Eos # (Auto) 0.26 (0.04-0.36) x10^3/uL Immature Gran # (Auto) 0.03 (0.001-0.031) x10^3u/L Absolute Lymphs (auto) 2.25 (1.18-3.74) x10^3/uL Absolute Monos (auto) 0.64 (0.24-0.86) x10^3/uL Absolute Nucleated RBC 0.00 (0.00-0.012) x10^3u/L Lymphocytes % 26.1 (19.3-51.7) % Monocytes % 7.4 (4.7-12.5) % Eosinophils % 3.0 (0.7-5.8) % Basophils % 0.6 (0.1-1.2) % Absolute Granulocytes 5.39 (1.56-6.13) x10^3/uL Basophils # 0.05 (0.01-0.08) x10^3/uL Sodium 139 (135-145) mmol/L Potassium 3.9 (3.5-5.1) mmol/L Chloride 104 (98-107) mmol/L Carbon Dioxide 24 (22-30) mmol/L Anion Gap 13.9 (5-15) MEQ/L BUN 12 (7-17) mg/dL Creatinine 0.58 (0.52-1.04) mg/dL Estimated GFR 132.0 ML/MIN Glucose 90 (74-106) mg/dL Calcium 9.3 (8.4-10.2) mg/dL Total Bilirubin 0.20 (0.2-1.3) mg/dL AST 29 (14-36) U/L ALT 23 (0-35) U/L Alkaline Phosphatase 71 (38-126) U/L Serum Total Protein 7.9 (6.3-8.2) g/dL Albumin 4.8 (3.5-5.0) g/dL Beta HCG, Quant 3069.8 mIU/ml Urine Color Yellow (Yellow) Urine Appearance Turbid A (Clear) Urine pH 8.0 (4.6-8.0) Ur Specific [place] 1.020 (1.005-1.030) Urine Protein Negative (Negative) Urine Glucose (UA) Negative (Negative) mg/dL Urine Ketones Negative (Negative) Urine Blood Small A (Negative) Urine Nitrite Negative (Negative) Urine Bilirubin Negative (Negative) Urine Urobilinogen 1.0 A (0.2) mg/dL Ur Leukocyte Esterase Trace A (Negative) U Hyaline Cast (Auto) NONE SEEN (0-2) /LPF Urine Microscopic RBC 0-2 (0-5) /HPF Urine Microscopic WBC 3-5 (0-5) /HPF Ur Epithelial Cells None Seen (None Seen) /HPF Amorphous Crystals Many A (None Seen) /HPF Urine Bacteria Few A (None Seen) /HPF Urine Culture Reflexed YES (NO) - Progress Progress: re-examined Air Movement: good Progress Note: 08/05/25 17:17 My medical decision making and the assignment of moderate complexity of this patient's medical issue today is based on review of the patient's past medical history, reviewed patient medication list, reviewed patient drug allergy list, history present with physical findings on examination. Workup in this patient includes placement of intravenous line, infusion of normal saline solution, urinalysis, quantitative hCG, CBC, CMP, less than 14 weeks OB ultrasound. Differential diagnosis includes was not limited to urinary tract infection, spontaneous miscarriage, ectopic , Laboratory data results were interpreted by me. The quantitative hCG today is unchanged from 07/16/2025 level. The less than 14-week OB ultrasound was performed by the nurse's assistant and the nurse's assistant/technologist provided me with the pr the sizeeliminary report. There was no heart tones visualized on this ultrasound study. 08/05/25 17:37 Patient desires to leave before IV fluids completed. Blood Culture(s) Obtained: No Antibiotics given: Yes Counseled pt/family regarding: lab results, diagnosis, need for follow-up, rad results Medical Desision Making - Independent Historian Additional History obtained from: Spouse - Diagnostic Testing Diagnostic test were ordered, analyzed, and reviewed by me: Yes Radiological Interpretation: Reviewed by me, Teleradiologist Report - Risk of complications Low Risk: Low risk of morbidity from additional dx testing or treatment The pt has a mod risk of morbidity or mortality based on: Need for prescription drug management - Departure Departure Disposition: Home Clinical Impression: Spontaneous miscarriage, UTI (urinary tract infection) Condition: Stable Critical Care Time: No Referrals: PRAVIN INIGUEZ MD [Primary Care Provider, [facility]] - Follow up/PCP as directed Additional Instructions: Drink plenty of clear liquids. Use Tylenol and ibuprofen for pain control. Take your antibiotics as prescribed. Keep your appointment with your certified health education specialist that is scheduled for tomorrow, 08/06/2025 Prescriptions: Cephalexin Mh 500 mg [Keflex 500 mg] 500 mg PO TID #21 cap
[2025-08-05] MEDS ORDERED: Zofran 4 MG/2 ML VIAL ONE (16:28)
[2025-08-05 16:33] LABS: BASOPHIL % 0.6 % (0.1-1.2); Basophil (Absolute #) 0.05 x10^3/uL (0.01-0.08); Eosinophil (Absolute #) 0.26 x10^3/uL (0.04-0.36); Hematocrit 39.2 % (34.1-44.9); Hemoglobin 13.7 g/dL (11.2-15.7); IMMATURE GRAN # 0.03 x10^3u/L (0.001-0.031); IMMATURE GRAN % 0.3 % (0.001-0.429); Lymphocyte (Absolute #) 2.25 x10^3/uL (1.18-3.74); Mean Corpuscular Hemoglobin 33.0 pg (25.6-32.2); Mean Corpuscular Hgb Concent. 34.9 g/dL (32.2-35.5); Monocyte (Absolute #) 0.64 x10^3/uL (0.24-0.86); NUCLEATED RBC # 0.00 x10^3u/L (0.00-0.012); NUCLEATED RBC % 0.0 % (0.00-0.2); Platelet Count 291 x10^3/uL (182-369); Red Blood Count 4.15 x10^6/uL (3.93-5.22); White Blood Count 8.6 x10^3/uL (3.98-10.04)
[2025-08-05 17:06] LABS: Calcium 9.3 mg/dL (8.4-10.2); Carbon Dioxide 24.0 mmol/L (22-30); Creatinine 1 0.58 mg/dL (0.52-1.04); EST GLOMERULAR FILTRATION RATE 132.0 ML/MIN; Glucose 90.0 mg/dL (74-106); Potassium 3.9 mmol/L (3.5-5.1); SGOT/AST 29.0 U/L (14-36); SGPT/ALT 23.0 U/L (0-35); Total Protein 7.9 g/dL (6.3-8.2)
[2025-08-05] MEDS: Zofran 4 MG/2 ML VIAL IV ONE (17:09)
[2025-08-05 17:10] LABS: Glucose, Urine Negative (Negative); Protein,Urine Dip Negative (Negative); RBC 0-2 /HPF (0-5)
[2025-08-05 17:11] LABS: Amourphous Crystal Many /HPF (None Seen)
--- NOTE | 2025-08-05 17:24 | XRAY ---
Indication: Vaginal bleeding/cramping. Two-dimensional transvaginal early OB ultrasound performed. Comparison: July 07, 2025 Uterus anteverted again with single intrauterine gestational sac. Mean sac diameter is 1.55 cm corresponding to 6 weeks 2 days. This was previously 5 weeks 0 days. Again no pole/heart tones. Neither ovaries are visualized. No suspicious adnexal mass or free fluid. Impression: Interval enlarging single intergestational sac now measuring 6 weeks 2 days. No pole/heart tones, possible early . Correlate with serial beta-HCG and follow-up sonogram regarding viability.
[2025-08-05] MEDS ORDERED: KEFLEX 500 MG ONE (17:33)
[2025-08-05] MEDS: KEFLEX 500 MG PO ONE (17:34)
== END 2025-08-05 17:48 | disposition home or self-care (01) ==
LOC: ED 15:54
DX: O03.9 Complete or unspecified spontaneous abortion without complication (principal); N39.0 Urinary tract infection, site not specified; Z79.899 Other long term (current) drug therapy

== ENCOUNTER 2025-08-07 10:52 | Emergency (ER) | payer OTHER ==
[2025-08-07 11:07] VITALS: BP 130/79; TEMP 98.8; O2SAT 97
--- NOTE | 2025-08-07 11:14 | ERPHSYRPT ---
- History of Present Illness Time Seen by Provider: 08/07/25 11:04 Source: patient Patient Subjective Stated Complaint: pt having heavy bleeding during Triage Nursing Assessment: Pt began bleeding 2 days ago and had an US and found pt to be having a miscarriage, pt went to see Dr. Obando yesterday and he told her to let it progress naturally unless she was having a lot of bleeding and cramping, pt was brought to the ER by her , tachycardic, rates pain anywhere between 3-10/10, pulses normal, skin n/w/d, denies chest pain, no difficulty breathing, has bled through her pad/underwear/and shorts in the past hour Physician History: History as above was contacted by patient's ENTERPRISE SYSTEMS ENGINEER provider reporting that she has had increased bleeding today. Has threatened miscarriage. Patient reports blood through a pad in the last 30 minutes. Denies dizziness. Reports some ongoing pelvic pain since recent evaluation mostly unchanged. Allergies/Adverse Reactions: No Known Drug Allergies Allergy (Verified 08/07/25 11:07) Home Medications: No Reportable Medications [No Reported Medications] 08/07/25 [History] Hx Tetanus, Diphtheria Vaccination/Date Given: Yes Hx Influenza Vaccination/Date Given: Yes Hx Pneumococcal Vaccination/Date Given: No Travel Risk - International Travel Have you traveled outside of the country in past 3 weeks: No - Emerging Infectious Disease Are you exhibiting symptoms associated with any current EIDs: Yes Symptoms: Abdominal Pain - Review of Systems Constitutional: No Fever, No Chills Eyes: No Symptoms Ears, Nose, & Throat: No Symptoms Respiratory: No Cough, No Dyspnea Cardiac: No Chest Pain, No Edema, No Syncope Abdominal/Gastrointestinal: Abdominal Pain, No Nausea, No Vomiting, No Diarrhea Genitourinary Symptoms: Vaginal Bleeding, No Dysuria Musculoskeletal: No Back Pain, No Neck Pain Skin: No Rash Neurological: No Dizziness, No Focal Weakness, No Sensory Changes Psychological: No Symptoms Endocrine: No Symptoms All Other Systems: Reviewed and Negative - Past Medical History Pertinent Past Medical History: Yes Neurological History: No Pertinent History ENT History: No Pertinent History Cardiac History: No Pertinent History Respiratory History: No Pertinent History Endocrine Medical History: Other Musculoskeletal History: Fractures GI Medical History: No Pertinent History History: No Pertinent History Psycho-Social History: Anxiety Female Reproductive Disorders: No Pertinent History Other Medical History: Excessive sweating - Past Surgical History Past Surgical History: No Neuro Surgical History: No Pertinent History Cardiac: No Pertinent History Respiratory: No Pertinent History Gastrointestinal: No Pertinent History Genitourinary: No Pertinent History Musculoskeletal: No Pertinent History Female Surgical History: No Pertinent History - Female History Hx Last Menstrual Period: 10/04/2024 Hx Now: Yes Gestational Age: 8.5 - Social History Smoking Status: Former smoker How long have you smoked: 0 Exposure to second hand smoke: No Drug Use: none - Social Determinants of Health Will the patient participate in the screening: Yes Do you worry about a steady place to live?: No Do you have any problems with any of the following?: No known problems In the past 12 months,have you had to go without utilities?: No Transportation Issues: No Has anyone in your support network made you feel unsafe?: No Have you or anyone in your house had to go w/o enough food: No - Nursing Vital Signs Nursing Vital Signs: Initial Vital Signs Temperature 98.8 F 08/07/25 10:58 Pulse Rate 97 H 08/07/25 10:58 Blood Pressure 130/79 08/07/25 10:58 O2 Sat by Pulse Oximetry 97 08/07/25 10:58 Pain Scale Pain Intensity 10 - Physical Exam General Appearance: no apparent distress Eye Exam: PERRL/EOMI, eyes nml inspection Ears, Nose, Throat Exam: normal ENT inspection, TMs normal, pharynx normal, moist mucous membranes Neck Exam: normal inspection, non-tender, supple, full range of motion Respiratory Exam: normal breath sounds, lungs clear, No respiratory distress Cardiovascular Exam: regular rate/rhythm, normal heart sounds, normal peripheral pulses Gastrointestinal/Abdomen Exam: soft, normal bowel sounds, tenderness, mass (Patient has mild suprapubic tenderness on examination no guarding or rebound) Back Exam: normal inspection, normal range of motion, No CVA tenderness, No vertebral tenderness Extremity Exam: normal inspection, normal range of motion, pelvis stable Neurologic Exam: alert, oriented x 3, cooperative, normal mood/affect, nml cerebellar function, nml station & gait, sensation nml, No motor deficits Skin Exam: normal color, warm, dry, No rash Lymphatic Exam: No adenopathy SpO2: 97 Ordered Tests: Active Orders 24 hr Category Date Time Status IV Insertion STAT Care 08/07/25 11:10 Active CBC W DIFF Stat Lab 08/07/25 11:15 Completed HCG, Quantitative (Inhouse) Stat Lab 08/07/25 11:15 Completed Medication Summary Discontinued Medications Generic Name Dose Route Start Last Admin Trade Name Anton PRN Reason Stop Dose Admin Fentanyl Citrate Confirm 08/07/25 11:50 Fentanyl Citrate 100 Mcg/2 Ml* Vial Administered 08/07/25 11:51 Dose 100 mcg .ROUTE .STK-MED ONE Sodium Chloride 1,000 mls @ 999 mls/hr 08/07/25 11:10 08/07/25 12:25 Sodium Chloride 0.9% 1000 Ml IV 08/07/25 12:10 Infused .Q1H1M STA Infusion Sodium Chloride Confirm 08/07/25 11:11 Sodium Chloride 0.9% 1000 Ml Administered 08/07/25 11:12 Dose 1,000 mls @ ud .ROUTE .STK-MED ONE Midazolam HCl Confirm 08/07/25 11:50 Midazolam Hcl 2 Mg/2 Ml Vial Administered 08/07/25 11:51 Dose 2 mg .ROUTE .STK-MED ONE Propofol Confirm 08/07/25 11:50 Propofol 200 Mg/20 Ml Vial Administered 08/07/25 11:51 Dose 200 mg IV .STK-MED ONE Lab/Rad Data: Laboratory Result Diagrams 08/07/25 11:15 Laboratory Results 08/07/25 08/07/25 08/07/25 Range/Units 11:20 11:15 11:15 WBC 9.2 (3.98-10.04) x10^3/uL RBC 4.08 (3.93-5.22) x10^6/uL Hgb 13.2 (11.2-15.7) g/dL Hct 38.2 (34.1-44.9) % MCV 93.6 (79.4-94.8) fL MCH 32.4 H (25.6-32.2) pg MCHC 34.6 (32.2-35.5) g/dL RDW 11.7 (11.7-14.4) % Plt Count 274 (182-369) x10^3/uL MPV 8.8 L (9.4-12.3) fL Gran % 73.6 H (34.0-71.1) % Immature Gran % (Auto) 0.4 (0.001-0.429) % Nucleat RBC Rel Count 0.0 (0.00-0.2) % Eos # (Auto) 0.14 (0.04-0.36) x10^3/uL Immature Gran # (Auto) 0.04 H (0.001-0.031) x10^3u/L Absolute Lymphs (auto) 1.65 (1.18-3.74) x10^3/uL Absolute Monos (auto) 0.57 (0.24-0.86) x10^3/uL Absolute Nucleated RBC 0.00 (0.00-0.012) x10^3u/L Lymphocytes % 17.9 L (19.3-51.7) % Monocytes % 6.2 (4.7-12.5) % Eosinophils % 1.5 (0.7-5.8) % Basophils % 0.4 (0.1-1.2) % Absolute Granulocytes 6.77 H (1.56-6.13) x10^3/uL Basophils # 0.04 (0.01-0.08) x10^3/uL Beta HCG, Quant 1616.0 mIU/ml ABO Group A Rh Factor POSITIVE Antibody Screen NEGATIVE (NEGATIVE) - Progress Progress: unchanged, improved Progress Note: 08/07/25 11:13 [address] Aguillon ENTERPRISE SYSTEMS ENGINEER contacted on arrival. CBC beta-hCG with IV fluids and type and screen was ordered. Plan was for patient to be evaluated by CLINICAL APPEALS REVIEWER team for dilation curettage in the operating room.. She was aware of this plan on arrival. 08/07/25 12:46 Patient's hemoglobin returned within normal range. She was taken directly to the operating room by the surgical team for further management. She was in stable condition with - Departure Departure Disposition: Release to OR/[facility] Clinical Impression: Threatened Condition: Stable Critical Care Time: No Referrals: PRAVIN INIGUEZ MD [Primary Care Provider, [facility]] - Follow up/PCP as directed
[2025-08-07 11:28] LABS: BASOPHIL % 0.4 % (0.1-1.2); Basophil (Absolute #) 0.04 x10^3/uL (0.01-0.08); Eosinophil (Absolute #) 0.14 x10^3/uL (0.04-0.36); Hematocrit 38.2 % (34.1-44.9); Hemoglobin 13.2 g/dL (11.2-15.7); IMMATURE GRAN # 0.04 x10^3u/L (0.001-0.031); IMMATURE GRAN % 0.4 % (0.001-0.429); Lymphocyte (Absolute #) 1.65 x10^3/uL (1.18-3.74); Mean Corpuscular Hemoglobin 32.4 pg (25.6-32.2); Mean Corpuscular Hgb Concent. 34.6 g/dL (32.2-35.5); Monocyte (Absolute #) 0.57 x10^3/uL (0.24-0.86); NUCLEATED RBC # 0.00 x10^3u/L (0.00-0.012); NUCLEATED RBC % 0.0 % (0.00-0.2); Platelet Count 274 x10^3/uL (182-369); Red Blood Count 4.08 x10^6/uL (3.93-5.22); White Blood Count 9.2 x10^3/uL (3.98-10.04)
[2025-08-07] MEDS ORDERED: propofoL IV ONE (11:50)
[2025-08-07] MEDS ORDERED: SUBLIMAZE 100 MCG/2 ML ONE (11:50)
[2025-08-07] MEDS ORDERED: Versed 2 MG/2 ML Injection ONE (11:50)
[2025-08-07 11:53] VITALS: PULSE 88; RESP 18
[2025-08-07 12:22] LABS: ABO TYPING A; RH TYPING POSITIVE
--- NOTE | 2025-08-11 12:28 | OP ---
SURGERY DATE/TIME: 08/07/2025 [id number] PREOPERATIVE DIAGNOSIS: Incomplete . POSTOPERATIVE DIAGNOSIS: Incomplete . PROCEDURE: Suction dilatation and curettage. SURGEON: Arturo Obando DO HEMATOLOGY TECHNICIAN: Rebecca Chi ANESTHESIA: General. ESTIMATED BLOOD LOSS: Minimal. COMPLICATIONS: None. INDICATIONS: The risks, benefits, indications, alternatives of the procedure were reviewed with the patient prior to the procedure. Patient understood the risks of infection, bleeding, bowel injury, bladder injury, ureteral injury, pelvic infection, retained products of conception, and thromboembolic disorder associated with the surgery, and desired to have the surgery as a possible means to alleviate her current medical condition. DESCRIPTION OF PROCEDURE AND FINDINGS: At this point, the patient was taken to the operating room, given general sedation, placed in a dorsal lithotomy position, prepped and draped in the usual sterile fashion. A weighted speculum was then placed in the patient's vagina, and the cervix was noted to be dilated with products of conception extruding from the cervical canal. Patient had been dilated as mentioned, and the tenaculum was placed on the anterior lip of the cervix. From this point, a #7 curved suction Vacurette was then placed into the fundus, and the suction machine was turned on for suctioning of the uterine content which was done so in all quadrants of the uterus retrieving a moderate amount of tissue. After complete suctioning, a curette was then placed into the fundus of the uterus, and curettage was performed in all quadrants and used to retrieve the remaining amount of tissue. From this point, hemostasis was obtained. At this point, all instruments have been removed in the patient's vaginal region. The patient was then taken out of the dorsal lithotomy position, was taken out of anesthesia, and was then taken to recovery room in stable condition. All instruments and laps were accounted for x2.
== END 2025-08-07 13:30 | disposition home or self-care (01) ==
LOC: ED 10:52
DX: O03.4 Incomplete spontaneous abortion without complication (principal)